=== PATIENT | male | born 1990 | race American Indian/Alaskan Native ===

== ENCOUNTER 2020-01-20 20:31 | Emergency (ER) | payer SELFPAY ==
[2020-01-20 21:38] VITALS: BP 149/87
[2020-01-21] MEDS ORDERED: ONDANSETRON 4 MG ODT TAB PO ONE (01:00)
[2020-01-21] MEDS ORDERED: oxyCODONE /ACETAMINOPHEN 5-325MG TAB PO ONE (01:00)
[2020-01-21] MEDS ORDERED: LIDOCAINE (1%) 10 MG/1 ML VIAL 20 ML MDV INFILTRATI ONE (01:00)
[2020-01-21] MEDS ORDERED: IBUPROFEN 600 MG TAB PO ONE (01:00)
[2020-01-21] MEDS ORDERED: SULFAMETHOXAZOLE/TRIMETHOPRIM 800/160MG DS TAB PO ONE (01:01)
[2020-01-21] MEDS ORDERED: CLINDAMYCIN 300 MG CAP PO ONE (01:01)
--- NOTE | 2020-01-21 02:58 | Emergency Department Report ---
ED General Adult HPI - General Chief complaint: Skin/Abscess/Foreign Body Stated complaint: CYST UNDER LEFT ARM Source: patient Mode of arrival: Ambulatory Limitations: No Limitations - History of Present Illness Initial comments: Patient is a 29-year-old -[place] male with no past medical history presents to the ED with complaint of acute onset persistent severe painful swollen erythematous maculopapular rash on left axilla for 2 weeks. Patient states that in the last 2 days the pain and swelling have worsened such that he is not been able to sleep or eat because of worsening pain. Patient denies dizziness, syncope, chest pain, shortness of breath, nausea, vomiting, fever, chills, traumatic injury, back pain, neck pain or headache. MD Complaint: left axilla painful swollen rash -: Sudden, week(s) (2) Location: upper extremity (left axilla) Radiation: non-radiation Severity scale (0 -10): 8 Quality: aching, sharp Consistency: constant Improves with: none Worsens with: movement Associated Symptoms: denies other symptoms, loss of appetite, malaise, rash (erythematous left axilla rash). denies: confusion, chest pain, cough, diaphoresis, fever/chills, headaches, nausea/vomiting, seizure, shortness of breath, syncope, weakness - Related Data Previous Rx's Medication Instructions Recorded Last Taken Type Acetaminophen/Codeine [Tylenol 1 tab PO Q6H PRN #12 tab 01/21/20 Unknown Rx /Codeine # 3 tab] Clindamycin [Clindamycin CAP] 300 mg PO Q8HR #60 capsule 01/21/20 Unknown Rx Ibuprofen [Motrin] 800 mg PO Q8HR PRN #30 tablet 01/21/20 Unknown Rx Ondansetron [Zofran Odt] 4 mg PO Q6HR PRN #15 tab.rapdis 01/21/20 Unknown Rx Sulfamethoxazole/Trimethoprim 1 each PO Q12H #20 tablet 01/21/20 Unknown Rx [Bactrim DS TAB] Allergies Allergy/AdvReac Type Severity Reaction Status Date / Time No Known Allergies Allergy Unverified 01/20/20 21:16 ED Review of Systems ROS: Stated complaint: CYST UNDER LEFT ARM Other details as noted in HPI Constitutional: denies: chills, fever Eyes: denies: eye pain, eye discharge, vision change ENT: denies: ear pain, throat pain Respiratory: denies: cough, shortness of breath, wheezing Cardiovascular: denies: chest pain, palpitations Endocrine: no symptoms reported Gastrointestinal: denies: abdominal pain, nausea, diarrhea Genitourinary: denies: urgency, dysuria Musculoskeletal: denies: back pain, joint swelling, arthralgia Skin: rash (Swollen erythematous fluctuant rash on left axilla with severe pain), change in color. denies: lesions Neurological: denies: headache, weakness, paresthesias Psychiatric: denies: anxiety, depression Hematological/Lymphatic: denies: easy bleeding, easy bruising ED Past Medical Hx - Past Medical History Previous Medical History?: No - Surgical History Past Surgical History?: No - Social History Smoking Status: Never Smoker Substance Use Type: None - Medications Home Medications: Home Medications Medication Instructions Recorded Confirmed Last Taken Type Acetaminophen/Codeine [Tylenol 1 tab PO Q6H PRN #12 tab 01/21/20 Unknown Rx /Codeine # 3 tab] Clindamycin [Clindamycin CAP] 300 mg PO Q8HR #60 capsule 01/21/20 Unknown Rx Ibuprofen [Motrin] 800 mg PO Q8HR PRN #30 tablet 01/21/20 Unknown Rx Ondansetron [Zofran Odt] 4 mg PO Q6HR PRN #15 tab.rapdis 01/21/20 Unknown Rx Sulfamethoxazole/Trimethoprim 1 each PO Q12H #20 tablet 01/21/20 Unknown Rx [Bactrim DS TAB] ED Physical Exam - General Limitations: No Limitations General appearance: alert, in no apparent distress - Head Head exam: Present: atraumatic, normocephalic, normal inspection - Eye Eye exam: Present: normal appearance, PERRL Pupils: Present: normal accommodation - ENT ENT exam: Present: normal exam, normal orophraynx, mucous membranes moist, TM's normal bilaterally, normal external ear exam - Neck Neck exam: Present: normal inspection, full ROM - Respiratory Respiratory exam: Present: normal lung sounds bilaterally. Absent: respiratory distress, wheezes, rales, stridor, chest wall tenderness, accessory muscle use, prolonged expiratory - Cardiovascular Cardiovascular Exam: Present: regular rate, normal rhythm, normal heart sounds. Absent: systolic murmur, diastolic murmur, rubs, gallop - GI/Abdominal GI/Abdominal exam: Present: soft, normal bowel sounds. Absent: distended, tenderness, rebound, hyperactive bowel sounds, hypoactive bowel sounds, organomegaly - Extremities Exam Extremities exam: Present: normal inspection, full ROM, normal capillary refill - Back Exam Back exam: Present: normal inspection, full ROM. Absent: tenderness, CVA tenderness (R), CVA tenderness (L), muscle spasm, paraspinal tenderness - Neurological Exam Neurological exam: Present: alert, oriented X3, CN II-XII intact, normal gait, reflexes normal - Psychiatric Psychiatric exam: Present: normal affect, normal mood - Skin Skin exam: Present: warm, dry, intact, normal color (Erythematous maculopapular fluctuant rash on left axilla severe tenderness), rash, erythema ED Course Vital Signs 01/20/20 21:14 Temperature 99.7 F H Pulse Rate 92 H Respiratory 18 Rate Blood Pressure 149/87 O2 Sat by Pulse 94 Oximetry - I & D Left Arm Type of Procedure: Simple Site: left axilla Blade Size: 11 I & D Procedure: betadine prep, sterile drapes applied, sterile dressing applied Progress: Patient tolerated procedure well. The wound was cleaned thoroughly and dressed appropriately. Patient was discharged home on medications including antibiotics and pain medications and advised to follow-up with his primary care physician in 7 to 10 days for reevaluation return to the ED immediately if symptoms get worse. ED Medical Decision Making - Medical Decision Making This is a 29-year-old -[place] male with no past medical history presents to the ED with complaint of acute onset persistent severe painful swollen erythematous maculopapular rash on left axilla for 2 weeks. Patient states that in the last 2 days the pain and swelling have worsened such that he is not been able to sleep or eat because of worsening pain. In the ED, patient is alert and oriented x3 and is not in distress but appears to be in significant pain. Patient was treated for pain in the ED and also given initial oral antibiotics. Left axilla abscess was incised and drained per protocol and the patient tolerated the procedure well. Patient was discharged home on pain medication and oral antibiotics and was advised to follow-up with his primary care physician in 7 to 10 days for reevaluation return to the ED immediately if symptoms get worse. Patient was also advised to return to the ED in 2 days for wound recheck and packing removal. - Differential Diagnosis Folliculitis, abscess; cellulitis; lymphadenopathy Critical care attestation.: If time is entered above; I have spent that time in minutes in the direct care of this critically ill patient, excluding procedure time. ED Disposition Clinical Impression: Cellulitis of left axilla, Acute folliculitis, Cutaneous abscess of left axilla Disposition: TO HOME OR SELFCARE Is pt being admited?: No Does the pt Need Aspirin: No Condition: Stable Instructions: Cellulitis (ED), Abscess (ED), Folliculitis (ED) Additional Instructions: Take medication with food, drink plenty of fluids and follow-up with your primary care physician in 7 to 10 days for reevaluation. Return to the ED immediately if symptoms get worse. Prescriptions: Sulfamethoxazole/Trimethoprim [Bactrim DS TAB] 1 each PO Q12H #20 tablet Clindamycin [Clindamycin CAP] 300 mg PO Q8HR #60 capsule Ibuprofen [Motrin] 800 mg PO Q8HR PRN #30 tablet PRN Reason: Pain , Severe (7-10) Acetaminophen/Codeine [Tylenol /Codeine # 3 tab] 1 tab PO Q6H PRN #12 tab PRN Reason: Pain , Severe (7-10) Ondansetron [Zofran Odt] 4 mg PO Q6HR PRN #15 tab.rapdis PRN Reason: Nausea Referrals: [facility] [Provider Group] - 7-10 days Time of Disposition: 02:55 Print Language: OCCITAN
== END 2020-01-21 03:10 | disposition home or self-care (01) ==
LOC: ED 20:31
DX: L03.112 Cellulitis of left axilla (principal); L73.8 Other specified follicular disorders; L02.412 Cutaneous abscess of left axilla; Z79.899 Other long term (current) drug therapy
CPT/HCPCS: 99283; Q0162